=== PATIENT | female | born 1970 | race Caucasian/White ===

== ENCOUNTER → 2017-09-07 | Outpatient (REF) | payer BC | LOC: M SFHCWAGY 09:16 | PROVIDERS: ATTEND Nurse Practitioner Women's Health | DX: Z12.4 Encounter for screening for malignant neoplasm of cervix (principal); Z12.31 Encounter for screening mammogram for malignant neoplasm of breast ==

== ENCOUNTER → 2017-09-07 | Outpatient (CLI) | payer BC ==
--- NOTE | 2017-09-07 10:07 | REPMRS ---
Patient History The patient states she had a clinical breast exam in 08/2017. Patient has history of other cancer at age 42. Family history of breast cancer in sister at age 43 and breast cancer in maternal aunt at age 58. Taking hormonal contraceptives for 12 years. Digital Woman Screen Mammo: September 07, 2017 - Exam #: [id number] Bilateral MLO and CC view(s) were taken. Technologist: Denita Antonio, Technologist Prior study comparison: September 01, 2016, digital woman screen mammo performed at [facility]. August 30, 2015, right breast digital mammo diagnostic unilateral, performed at [facility]. FINDINGS: There are scattered fibroglandular densities. There has been no change in the appearance of the mammogram from the prior studies. There is a mild amount of residual fibroglandular tissue which is fairly symmetric. There is no interval development of dominant mass, architectural distortion, or clustered microcalcification suggestive of malignancy. ASSESSMENT: BI-RADS/ACR category 1 mammogram. Negative. Recommendation Routine screening mammogram in 1 year (for women over age 40). This mammogram was interpreted with the aid of an FDA-approved computer-aided dectection system. Electronically Signed By: Antonio Fowler MD 09/07/17 1007
== END ==
LOC: M WHC 08:16
PROVIDERS: ATTEND Nurse Practitioner Women's Health
DX: Z12.31 Encounter for screening mammogram for malignant neoplasm of breast (principal); Z80.3 Family history of malignant neoplasm of breast; Z79.3 Long term (current) use of hormonal contraceptives

== ENCOUNTER → 2018-09-13 | Outpatient (CLI) | payer BC | LOC: M WHC 08:09 | DX: Z12.31 Encounter for screening mammogram for malignant neoplasm of breast (principal); Z80.3 Family history of malignant neoplasm of breast; Z85.9 Personal history of malignant neoplasm, unspecified | CPT/HCPCS: 77067 ==

== ENCOUNTER → 2019-09-18 | Outpatient (CLI) | payer BC ==
--- NOTE | 2019-09-18 09:42 | REPMRS ---
Patient History The patient states she had a clinical breast exam in 2018.Patient has history of other cancer at age 42. Family history of breast cancer at age 43 in sister, breast cancer at age 58 in maternal aunt. Taking hormonal contraceptives for 13 years. 3D TOMOSYNTHESIS WAS PERFORMED. The [facility] lifetime risk for breast cancer is 17.7%. Digital Woman Screen Mammo: September 18, 2019 - Exam #: [id number] Bilateral CC and MLO view(s) were taken. Technologist: Josefa Garrett, Technologist Prior study comparison: September 13, 2018, bilateral digital woman screen mammo performed at [facility]. September 07, 2017, digital woman screen mammo performed at [facility]. FINDINGS: There are scattered fibroglandular densities. There has been no change in the appearance of the mammogram from the prior studies. There is a mild amount of residual fibroglandular tissue which is fairly symmetric. There is no interval development of dominant mass, architectural distortion, or clustered microcalcification suggestive of malignancy. Assessment: BI-RADS/ACR category 1 mammogram. Negative Mammogram. Recommendation Routine screening mammogram in 1 year (for women over age 40). This mammogram was interpreted with the aid of an FDA-approved computer-aided dectection system. Electronically Signed By: Antonio Fowler MD 09/18/19 0941
== END ==
LOC: M WHC 08:02
PROVIDERS: ATTEND Nurse Practitioner Women's Health
DX: Z12.31 Encounter for screening mammogram for malignant neoplasm of breast (principal); Z80.3 Family history of malignant neoplasm of breast; Z85.9 Personal history of malignant neoplasm, unspecified

== ENCOUNTER 2019-11-30 08:29 | Day surgery (SDC) | payer BC ==
[~2019-11-30] VITALS: Ht 160 cm; Wt 87.1 kg
[~2019-11-30 08:29] MED LIST: ATOR1TAB21 PO; MULTCAP PO; NS 1,000 ML IV ONE
[2019-11-30] MEDS ORDERED: LIDOCAINE 2% INJ 100 MG/5 ML SDV (FOR ANES.) As Ordered ONE (09:13)
[2019-11-30] MEDS ORDERED: propofoL 200 MG/20 ML VIAL As Ordered ONE (09:13)
--- NOTE | 2019-11-30 10:13 | ROOR ---
Patient Name: Marlen Ortega Procedure Date: 11/30/2019 9:39 AM Date of : 1970 Age: 49 Room: [facility] Gender: Female Note Status: Finalized Procedure: Colonoscopy Indications: Screening for colorectal malignant neoplasm, This is the patient's first colonoscopy Providers: Jeffry Moulton MD Referring MD: AUSTIN ISBELL NP Requesting Provider: Medicines: Monitored Anesthesia Care Complications: No immediate complications. Procedure: Pre-Anesthesia Assessment: - Prior to the procedure, a History and Physical was performed, and patient medications and allergies were reviewed. The patient is competent. The risks and benefits of the procedure and the sedation options and risks were discussed with the patient. All questions were answered and informed consent was obtained. Patient identification and proposed procedure were verified by the physician, the nurse and the anesthesiologist in the procedure room. Mental Status Examination: alert and oriented. Airway Examination: normal oropharyngeal airway and neck mobility. Prophylactic Antibiotics: The patient does not require prophylactic antibiotics. Prior Anticoagulants: The patient has taken no previous anticoagulant or antiplatelet agents. ASA Grade Assessment: II - A patient with mild systemic disease. After reviewing the risks and benefits, the patient was deemed in satisfactory condition to undergo the procedure. The anesthesia plan was to use monitored anesthesia care (MAC). Immediately prior to administration of medications, the patient was re-assessed for adequacy to receive sedatives. The heart rate, respiratory rate, oxygen saturations, blood pressure, adequacy of pulmonary ventilation, and response to care were monitored throughout the procedure. The physical status of the patient was re-assessed after the procedure. The Colonoscope was introduced through the anus and advanced to the cecum, identified by appendiceal orifice and ileocecal valve. The colonoscopy was performed without difficulty. The patient tolerated the procedure well. The quality of the bowel preparation was excellent. Findings: The perianal and digital rectal examinations were normal. The colon (entire examined portion) appeared normal. Impression: - The entire examined colon is normal. - No specimens collected. Recommendation: - Discharge patient to home. - Resume previous diet. - Continue present medications. - Repeat colonoscopy in 10 years for screening purposes. Jeffry Moulton MD Jeffry Moulton MD 11/30/2019 10:13:10 AM Electronically signed by Jeffry Moulton MD Number of Addenda: 0 Note Initiated On: 11/30/2019 9:39 AM Estimated Blood Loss: Estimated blood loss: none.
[2019-11-30 10:30] VITALS: BP 121/60
== END 2019-11-30 10:42 | disposition home or self-care (01) ==
LOC: M OPP 08:29
PROVIDERS: ATTEND Surgery
DX: Z12.11 Encounter for screening for malignant neoplasm of colon (principal); Z79.899 Other long term (current) drug therapy

== ENCOUNTER → 2020-09-19 | Outpatient (REF) | payer BC ==
[~2020-09-19] MED LIST changes: -NS 1,000 ML IV ONE
== END ==
LOC: M SFHCWAGY 13:28
PROVIDERS: ATTEND Nurse Practitioner Women's Health
DX: Z12.4 Encounter for screening for malignant neoplasm of cervix (principal); Z01.419 Encounter for gynecological examination (general) (routine) without abnormal findings

== ENCOUNTER → 2020-12-20 | Outpatient (CLI) | payer SELFPAY | LOC: M LABSMTC 09:43 | PROVIDERS: ATTEND Pediatrics | DX: Z11.52 Encounter for screening for COVID-19 (principal) ==